=== PATIENT | male | born 1950 | race Two or more races ===

== ENCOUNTER 2022-08-11 21:24 | Emergency (ER) | payer MEDICARE ==
[~2022-08-11] VITALS: Ht 180.3 cm; Wt 155.0 kg
[~2022-08-11 21:24] MED LIST: HYDR12.55 PO; LOSA100T57 PO; SERT-434 PO
[2022-08-11] MEDS ORDERED: acetaminophen 325mg tablet PO ONE (21:40)
[2022-08-11 21:57] LABS: BASOPHILS % (AUTO) 0.3 % (0-1); EOSINOPHILS # (AUTO) 0.1 X10'3 (0-0.9); EOSINOPHILS % (AUTO) 0.9 % (0-6); HEMATOCRIT 35.1 % (42.0-52.0); HEMOGLOBIN 11.8 g/dl (14.0-17.9); LYMPHOCYTES # (AUTO) 0.4 X10'3 (1.1-4.8); LYMPHOCYTES % (AUTO) 3.3 % (21-51); MEAN CORPUSCULAR HEMOGLOBIN 30.4 PG (27.0-31.0); MEAN CORPUSCULAR HGB CONC 33.8 g/dL (33.0-36.5); MEAN PLATELET VOLUME 7.8 FL (7.4-10.4); MONOCYTES # (AUTO) 0.7 X10'3 (0-0.9); NEUTROPHILS # (AUTO) 12.4 X10'3 (1.8-7.7); NEUTROPHILS % (AUTO) 90.5 % (42-75); PLATELET COUNT 355 X10'3 (140-440); RED CELL DISTRIBUTION WIDTH 14.4 % (11.5-14.5); WHITE BLOOD COUNT 13.7 X10'3 (4.5-11.0)
[2022-08-11 22:08] LABS: ALANINE AMINOTRANSFERASE 49 U/L (12-78); ALBUMIN 3.3 G/DL (3.4-5.0); ALBUMIN/GLOBULIN RATIO 0.9 (1.1-1.5); ALKALINE PHOSPHATASE 134 IU/L (46-116); ANION GAP 8 (8-16); ASPARTATE AMINO TRANSFERASE 54 U/L (10-37); BILIRUBIN,TOTAL 0.5 MG/DL (0.1-1.0); BLOOD UREA NITROGEN 21 MG/DL (7-18); BUN/CREATININE RATIO 19.6 (5.4-32.0); CALCIUM 9.2 MG/DL (8.5-10.1); CHLORIDE 101 MMOL/L (99-107); CREATININE 1.07 MG/DL (0.60-1.10); GLUCOSE 143 MG/DL (70-104); POTASSIUM 3.9 MMOL/L (3.5-5.1); SODIUM 139 MMOL/L (135-145); TOTAL CARBON DIOXIDE 30.3 MMOL/L (24-32); TOTAL PROTEIN 7.1 G/DL (6.4-8.2); eGFR 68 ML/MIN
[2022-08-11 22:23] LABS: CLARITY,URINE CLOUDY (Clear); COLOR,URINE YELLOW (Yellow); GLUCOSE, URINE NEGATIVE (Neg); KETONES,URINE NEGATIVE (Neg); LEUKOCYTE ESTERASE ,URINE MODERATE (Neg); NITRITES, URINE POSITIVE (Neg); OCCULT BLOOD,URINE MODERATE (Neg); PROTEIN,URINE TRACE mg/dl (Neg); UROBILINOGEN,URINE 0.2 E.U/dL (0.2-1.0)
[2022-08-11 22:26] LABS: UA COLLECTION TYPE CLN CATCH MIDSTREAM
[2022-08-11 22:31] LABS: BACTERIA,URINE 4+ /HPF (Neg); HYALINE CASTS 0-3 /LPF (NEGATIVE); MUCUS STRANDS NONE SEEN /LPF (Neg); SQUAMOUS EPITHELIAL CELL,UR NONE SEEN /LPF (FEW); WBC CLUMPS,URINE FEW /HPF (NEGATIVE); WBC,URINE 50-100 /HPF (0-4)
[2022-08-11] MEDS ORDERED: CefTRIAXone/D5W-Rocephin 1gm 50 ML IV ONE (22:55)
[2022-08-11] MEDS ORDERED: FOSFOMYCIN TROMETHAMINE 3 GM PACKET PO ONE (22:55)
[2022-08-12 01:47] VITALS: BP 161/84
--- NOTE | 2022-08-15 09:40 | NUR ---
PT CALLED REGARDING VISIT ON 08/11/22 AND LAB RESULTS. NO ANSWER, UNABLE TO LEAVE A MSG
== END 2022-08-12 01:51 ==
LOC: ER 21:25
DX: N39.0 Urinary tract infection, site not specified (principal); I10 Essential (primary) hypertension; F31.9 Bipolar disorder, unspecified; Z87.19 Personal history of other diseases of the digestive system; Z79.899 Other long term (current) drug therapy
CPT/HCPCS: 36415; 71045; 80053; 81001; 83880; 84484; 85025; 87088; 87186; 93005; 96365; 99285; J0696; 87077